=== PATIENT | female | born 1980 | race Caucasian/White ===

== ENCOUNTER 2016-12-06 16:32 | Emergency (ER) | payer OTHER ==
[~2016-12-06 16:32] MED LIST: CYMBALTA 30 MG30 MG PO; IBUPROFEN800 MG PO; PHENERGAN 12.12.5 M1 PO; PROTONIX40 MG PO; ROBAXIN 750 MG750 MG PO
[2016-12-06 19:08] LABS: HEMOGLOBIN 12.7 gm/dl (12.3-15.3); RED BLOOD COUNT 4.61 M/UL (4.00-5.10); WHITE BLOOD COUNT 9.1 K/UL (4.5-11.0)
[2016-12-06 19:25] LABS: BUN/CREATININE RATIO 13 (0-10)
[2017-03-18] MEDS ORDERED: VOLTAREN100 GM TP (15:13)
[2017-03-18] MEDS ORDERED: ZOFRAN4 MG PO (15:14)
[2017-03-18] MEDS ORDERED: VITAMIN D 11000 UNIT PO (15:16)
[2017-03-18] MEDS ORDERED: VISTARIL 25 MG25 MG PO (15:17)
[2017-03-18] MEDS ORDERED: BUPRENORPHIN-N1 EACH SL (15:18)
[2017-03-18] MEDS ORDERED: VOLTAREN EC 5050 MG PO (15:20)
== END 2016-12-06 21:21 | disposition home or self-care (01) ==
LOC: ER1 16:32
PROVIDERS: Family Medicine
DX: K85.90 Acute pancreatitis without necrosis or infection, unspecified (principal); F17.200 Nicotine dependence, unspecified, uncomplicated
CPT/HCPCS: 36415; 80053; 81001; 83690; 85025; 87086; 93005; 96361; 96374; 96375; 99284; J1885; J2405; J2550; J7030

== ENCOUNTER 2016-12-08 19:48 | Emergency (ER) | payer OTHER ==
[2016-12-09 01:01] LABS: WHITE BLOOD COUNT 6.9 K/UL (4.5-11.0)
[2016-12-09 01:03] LABS: RED BLOOD COUNT 4.02 M/UL (4.00-5.10)
[2016-12-09 01:16] LABS: BUN/CREATININE RATIO 10 (0-10)
[2017-03-18] MEDS ORDERED: VOLTAREN100 GM TP (15:13)
[2017-03-18] MEDS ORDERED: ZOFRAN4 MG PO (15:14)
[2017-03-18] MEDS ORDERED: VITAMIN D 11000 UNIT PO (15:16)
[2017-03-18] MEDS ORDERED: VISTARIL 25 MG25 MG PO (15:17)
[2017-03-18] MEDS ORDERED: BUPRENORPHIN-N1 EACH SL (15:18)
[2017-03-18] MEDS ORDERED: VOLTAREN EC 5050 MG PO (15:20)
== END 2016-12-09 03:05 | disposition home or self-care (01) ==
LOC: ER1 19:48
PROVIDERS: Physician Assistant
DX: K85.90 Acute pancreatitis without necrosis or infection, unspecified (principal); F17.210 Nicotine dependence, cigarettes, uncomplicated; F41.9 Anxiety disorder, unspecified; Z79.899 Other long term (current) drug therapy
CPT/HCPCS: 36415; 80053; 81001; 83690; 84703; 85025; 87086; 96374; 96375; 96376; 99284; J2270; J2405; J7030; J7050; Q9962

== ENCOUNTER 2016-12-16 15:38 | Emergency (ER) | payer OTHER ==
[2016-12-16 17:02] LABS: HEMOGLOBIN 11.1 gm/dl (12.3-15.3); RED BLOOD COUNT 4.02 M/UL (4.00-5.10); WHITE BLOOD COUNT 6.5 K/UL (4.5-11.0)
[2016-12-16 17:14] LABS: BUN/CREATININE RATIO 14 (0-10)
[2017-03-18] MEDS ORDERED: VOLTAREN100 GM TP (15:13)
[2017-03-18] MEDS ORDERED: ZOFRAN4 MG PO (15:14)
[2017-03-18] MEDS ORDERED: VITAMIN D 11000 UNIT PO (15:16)
[2017-03-18] MEDS ORDERED: VISTARIL 25 MG25 MG PO (15:17)
[2017-03-18] MEDS ORDERED: BUPRENORPHIN-N1 EACH SL (15:18)
[2017-03-18] MEDS ORDERED: VOLTAREN EC 5050 MG PO (15:20)
== END 2016-12-16 21:45 | disposition left against medical advice (07) ==
LOC: ER1 15:38
PROVIDERS: Emergency Medicine
DX: R10.11 Right upper quadrant pain (principal); R10.31 Right lower quadrant pain; R11.0 Nausea; F17.200 Nicotine dependence, unspecified, uncomplicated
CPT/HCPCS: 36415; 80053; 81001; 83690; 84703; 85025; 87086; 96374; 96375; 99284; J2270; J2405; J7030

== ENCOUNTER 2020-10-14 21:58 | Emergency (ER) | payer OTHER ==
[~2020-10-14 21:58] MED LIST changes: +ALBUTEROL1.25 MG/3 INH; +BUPRENORPHIN-N1 EACH SL; +EXPECTORANT200 MG PO; +GABAPENTIN600 MG PO; +MILLIPRED5 MG PO; +PREDNISONE 50 M50 MG PO; +PREDNISONE20 MG PO; +SYMBICORT 16010.2 GM INH; +TESSALON PERLE100 MG PO; +VIBRAMYCIN100 MG PO; +VISTARIL 25 MG25 MG PO; +VITAMIN D 11000 UNIT PO; +VOLTAREN EC 5050 MG PO; +VOLTAREN100 GM TP; +VRAYLAR PO; +ZITHROMAX250 MG PO; +ZITHROMAX500 MG PO; +ZOFRAN4 MG PO; +ZYRTEC10 M3 PO
[2020-10-15 00:23] LABS: HEMOGLOBIN 10.2 gm/dl (12.3-15.3); RED BLOOD COUNT 3.99 M/UL (4.00-5.10); WHITE BLOOD COUNT 14.5 K/UL (4.5-11.0)
[2020-10-15 00:51] LABS: BUN/CREATININE RATIO 13 (0-10)
== END 2020-10-15 04:50 | disposition short-term general hospital (02) ==
LOC: ER1 21:58
PROVIDERS: Family Medicine
DX: S22.41XA Multiple fractures of ribs, right side, initial encounter for closed fracture (principal); S32.10XA Unspecified fracture of sacrum, initial encounter for closed fracture; J44.9 Chronic obstructive pulmonary disease, unspecified; Z90.710 Acquired absence of both cervix and uterus; W19.XXXA Unspecified fall, initial encounter
CPT/HCPCS: 36415; 70450; 71260; 72125; 80053; 80307; 81001; 82550; 82553; 83874; 84484; 85025; 93005; 96365; 96366; 99285; G0480; J3480; J7030; Q9967

== ENCOUNTER 2020-10-24 19:10 | Emergency (ER) | payer OTHER | END 2020-10-24 22:55 | disposition home or self-care (01) | LOC: ER1 19:10 | DX: S00.83XA Contusion of other part of head, initial encounter (principal); M54.5 Low back pain; F17.210 Nicotine dependence, cigarettes, uncomplicated; Z79.899 Other long term (current) drug therapy; Y04.0XXA Assault by unarmed brawl or fight, initial encounter; Y92.410 Unspecified street and highway as the place of occurrence of the external cause | CPT/HCPCS: 70486; 71045; 72100; 73502; 73552; 82962; 99284 ==

== ENCOUNTER 2021-03-22 12:39 | Inpatient (IN) | payer OTHER ==
[~2021-03-22] VITALS: Ht 165.1 cm; Wt 86.2 kg
[2021-03-22 13:14] LABS: HEMOGLOBIN 10.1 gm/dl (12.3-15.3); RED BLOOD COUNT 3.71 M/UL (4.00-5.10); WHITE BLOOD COUNT 2.6 K/UL (4.5-11.0)
[2021-03-22 14:00] LABS: BUN/CREATININE RATIO 27 (0-10)
[2021-03-22] MEDS ORDERED: PERCOCET 5/325 T1 EA PO (19:54)
[2021-03-22] MEDS ORDERED: FUROSEMIDE40 MG PO (19:56)
[2021-03-22] MEDS ORDERED: HYDROXYZINE HCL25 MG PO (19:57)
[2021-03-22] MEDS ORDERED: POTASSIUM CHLO10 ME2 PO (20:00)
[2021-03-22] MEDS ORDERED: WELLBUTRIN SR150 M1 PO (20:00)
[2021-03-22] MEDS ORDERED: FAMOTIDINE20 MG PO (20:01)
[2021-03-23 00:44] LABS: ACINETOBACTER BAUMANNII Not Detected (Negative); CANDIDA ALBICANS Not Detected (Negative); CANDIDA KRUSEI Not Detected (Negative); CANDIDA TROPICALIS Not Detected (Negative); ENTEROCOCCUS Not Detected (Negative); ESCHERICHIA COLI Not Detected (Negative); HAEMOPHILUS INFLUENZAE Not Detected (Negative); KLEBSIELLA OXYTOCA Not Detected (Negative); KLEBSIELLA PNEUMONIAE Not Detected (Negative); KPC-CARBAPENEM-RESISTANCE GENE Not Detected (Negative); PROTEUS Not Detected (Negative); PSEUDOMONAS AERUGINOSA Not Detected (Negative); SERRATIA MARCESANS Not Detected (Negative); STREP AGALACTIAE (GROUP B) Not Detected (Negative); STREP PYOGENES (GROUP A) Not Detected (Negative); STREPTOCOCCUS Not Detected (Negative); vanA/B (VANCOMYCIN RESIST GENE Not Detected (Negative)
[2021-03-23 02:00] LABS: STAPHYLOCOCCUS DETECTED (Negative); STAPHYLOCOCCUS AUREUS DETECTED (Negative); mecA (METHICILLIN RESIST GENE DETECTED (Negative)
[2021-03-23 04:12] LABS: BUN/CREATININE RATIO 28 (0-10)
[2021-03-23 07:41] LABS: RED BLOOD COUNT 3.14 M/UL (4.00-5.10); WHITE BLOOD COUNT 3.6 K/UL (4.5-11.0)
[2021-03-24 04:35] LABS: HEMOGLOBIN 8.2 gm/dl (12.3-15.3); RED BLOOD COUNT 3.12 M/UL (4.00-5.10); WHITE BLOOD COUNT 4.7 K/UL (4.5-11.0)
[2021-03-24 05:08] LABS: HBSAG SCREEN Negative (Negative); HEP A AB, IGM Negative (Negative); HEP B CORE AB, IGM Negative (Negative); HEP C VIRUS AB >11.0 (0.0-0.9)
[2021-03-24 05:22] LABS: BUN/CREATININE RATIO 34 (0-10)
[2021-03-24] MEDS ORDERED: OXYCODONE HCL5 MG PO (10:17)
[2021-03-24 15:14] LABS: FINAL INTERPRETATION Negative (.); HIV 1 AB Negative (Negative); HIV 2 AB Negative (Negative)
[2021-03-25 04:50] LABS: HEMOGLOBIN 7.7 gm/dl (12.3-15.3); RED BLOOD COUNT 2.83 M/UL (4.00-5.10)
[2021-03-25 05:18] LABS: BUN/CREATININE RATIO 31 (0-10)
[2021-03-26 03:01] LABS: HEMOGLOBIN 7.4 gm/dl (12.3-15.3); RED BLOOD COUNT 2.8 M/UL (4.00-5.10)
[2021-03-26 03:05] LABS: WHITE BLOOD COUNT 10.4 K/UL (4.5-11.0)
[2021-03-26 03:21] LABS: BUN/CREATININE RATIO 32 (0-10)
[2021-03-27 04:34] LABS: WHITE BLOOD COUNT 10.9 K/UL (4.5-11.0)
[2021-03-27 04:39] LABS: RED BLOOD COUNT 2.46 M/UL (4.00-5.10)
[2021-03-27 04:40] LABS: HEMOGLOBIN 6.7 gm/dl (12.3-15.3)
[2021-03-27 04:53] LABS: BUN/CREATININE RATIO 25 (0-10)
[2021-03-28 09:14] LABS: WHITE BLOOD COUNT 13.1 K/UL (4.5-11.0)
[2021-03-28 09:17] LABS: RED BLOOD COUNT 3.06 M/UL (4.00-5.10)
[2021-03-28 09:32] LABS: BUN/CREATININE RATIO 23 (0-10)
[2021-03-29 03:58] LABS: HEMOGLOBIN 7.6 gm/dl (12.3-15.3); RED BLOOD COUNT 2.9 M/UL (4.00-5.10); WHITE BLOOD COUNT 14.3 K/UL (4.5-11.0)
[2021-03-29 04:20] LABS: BUN/CREATININE RATIO 24 (0-10)
[2021-03-30 04:12] LABS: RED BLOOD COUNT 2.67 M/UL (4.00-5.10); WHITE BLOOD COUNT 13.1 K/UL (4.5-11.0)
[2021-03-30 04:14] LABS: HEMOGLOBIN 6.8 gm/dl (12.3-15.3)
[2021-03-30 04:33] LABS: BUN/CREATININE RATIO 23 (0-10)
--- NOTE | 2021-03-30 14:13 | NUR ---
NO CHANGE FROM PREVIOUS ASSESSMENT
[2021-03-31 09:05] LABS: WHITE BLOOD COUNT 13.5 K/UL (4.5-11.0)
[2021-03-31 09:16] LABS: HEMOGLOBIN 8.9 gm/dl (12.3-15.3); RED BLOOD COUNT 3.24 M/UL (4.00-5.10)
--- NOTE | 2021-03-31 16:15 | NUR ---
HEMOVAC TO RIGHT THIGH REMOVED PER MD ORDER, NO SIGNS OF BLEEDING, PT TOLERATED WELL, WILL CONT. TO MONITOR
[2021-04-01 03:23] LABS: HEMOGLOBIN 8.9 gm/dl (12.3-15.3); RED BLOOD COUNT 3.23 M/UL (4.00-5.10); WHITE BLOOD COUNT 10.9 K/UL (4.5-11.0)
[2021-04-01 03:57] LABS: BUN/CREATININE RATIO 13 (0-10)
[2021-04-02 05:52] LABS: HEMOGLOBIN 8.7 gm/dl (12.3-15.3); RED BLOOD COUNT 3.21 M/UL (4.00-5.10)
[2021-04-02 05:59] LABS: WHITE BLOOD COUNT 7.5 K/UL (4.5-11.0)
[2021-04-02 06:15] LABS: BUN/CREATININE RATIO 12 (0-10)
[2021-04-04 06:55] LABS: WHITE BLOOD COUNT 6.8 K/UL (4.5-11.0)
[2021-04-04 06:58] LABS: RED BLOOD COUNT 3.72 M/UL (4.00-5.10)
[2021-04-04 07:24] LABS: BUN/CREATININE RATIO 12 (0-10)
[2021-04-05 04:38] LABS: HEMOGLOBIN 9.1 gm/dl (12.3-15.3); RED BLOOD COUNT 3.39 M/UL (4.00-5.10); WHITE BLOOD COUNT 7.1 K/UL (4.5-11.0)
[2021-04-05 05:25] LABS: BUN/CREATININE RATIO 15 (0-10)
[2021-04-05] MEDS ORDERED: FLAGYL500 MG PO (10:45)
[2021-04-05] MEDS ORDERED: FUROSEMIDE40 MG PO (10:47)
[2021-04-05] MEDS ORDERED: OXYCODONE HCL5 MG PO (12:57)
== END 2021-04-05 17:30 | DRG 853 ==
LOC: ER1 12:39 → CDU 15:00 → MED SURG 4 15:00 → PROG CARE 15:00 → MED SURG 4 04-01 15:29 → PROG CARE 04-03 19:25 → MED SURG 4 04-03 19:48
PROVIDERS: Emergency Medicine; Internal Medicine; Orthopaedic Surgery; Physician Assistant; ADMIT Internal Medicine
PROC: 02HV33Z Insertion of Infusion Device into Superior Vena Cava, Percutaneous Approach (ICD-10-PCS; 2021-03-24)
PROC: B548ZZA Ultrasonography of Superior Vena Cava, Guidance (ICD-10-PCS; 2021-03-24)
PROC: B24BZZ4 Ultrasonography of Heart with Aorta, Transesophageal (ICD-10-PCS; 2021-03-25)
PROC: 0SCB0ZZ Extirpation of Matter from Left Hip Joint, Open Approach (ICD-10-PCS; principal; 2021-03-28 12:53)
PROC: 30233N1 Transfusion of Nonautologous Red Blood Cells into Peripheral Vein, Percutaneous Approach (ICD-10-PCS; 2021-03-30)
DX: A41.02 Sepsis due to Methicillin resistant Staphylococcus aureus (principal); J96.01 Acute respiratory failure with hypoxia; D62 Acute posthemorrhagic anemia; M00.852 Arthritis due to other bacteria, left hip; D61.818 Other pancytopenia; E87.1 Hypo-osmolality and hyponatremia; Z20.822 Contact with and (suspected) exposure to COVID-19; E87.6 Hypokalemia; F19.10 Other psychoactive substance abuse, uncomplicated; F41.9 Anxiety disorder, unspecified; R74.01 Elevation of levels of liver transaminase levels; F32.9 Major depressive disorder, single episode, unspecified; K21.9 Gastro-esophageal reflux disease without esophagitis; D69.6 Thrombocytopenia, unspecified; F11.10 Opioid abuse, uncomplicated; K76.89 Other specified diseases of liver; Z87.81 Personal history of (healed) traumatic fracture
CPT/HCPCS: ECHO; 0240U; 36415; 36430; 36600; 51702; 71045; 73501; 73700; 76000; 80048; 80053; 80074; 80202; 80307; 81001; 82550; 82553; 82803; 83036; 83605; 83690; 83735; 83874; 83880; 84100; 84484; 84703; 85025; 85610; 85730; 86140; 86701; 86702; 86850; 86900; 86901; 86920; 87040; 87070; 87077; 87150; 87186; 87205; 93306; 93312; 93320; 93971; 94640; 94664; 94760; 96374; 96375; 97110; 97110-GP-CQ; 97116-GP-CQ; 97162; 97166; 99285; C1751; J0461; J0690; J0692; J1100; J1650; J1885; J1940; J2001; J2250; J2270; J2405; J2704; J2710; J3010; J3370; J7030; J7050; J7070; J7120; P9016; Q9967; U0002